=== PATIENT | female | born 1975 | race Hispanic/Latino ===

== ENCOUNTER 2017-09-12 06:31 | Emergency (ER) | payer OTHER ==
[~2017-09-12] VITALS: Ht 167.6 cm; Wt 83.5 kg
[~2017-09-12 06:31] MED LIST: PERCOCET 325 MG1 TA2 PO; ZOFRAN4 M1 SL
[2017-09-12 07:26] LABS: ABSOLUTE BASOPHIL COUNT 0 /CUMM (0.0-0.2); ABSOLUTE EOSINOPHIL COUNT 0.1 /CUMM (0.0-0.7); ABSOLUTE GRANULOCYTE CT 4.9 /CUMM (1.4-6.5); ABSOLUTE LYMPH COUNT 1.5 /CUMM (1.2-3.4); ABSOLUTE MONOCYTE COUNT 0.4 /CUMM (0.10-0.60); BASOPHIL % 0.7 % (0.0-2.0); EOSINOPHIL % 1.9 % (0-5); GRANULOCYTE % 70.2 % (42.2-75.2); MEAN CORPUSCULAR HGB 30.3 PG (27.0-31.0); MEAN CORPUSCULAR HGB CONC 34.6 G/DL (33.0-37.0); MEAN CORPUSCULAR VOLUME 87.5 FL (81.0-99.0); MEAN PLATELET VOLUME 7.6 FL (7.4-10.4); PLATELET COUNT 263 /CUMM (130-400); RBC DISTRIBUTION WIDTH 12.9 % (11.5-14.5)
--- NOTE | 2017-09-12 07:33 | ED GENERAL ADULT ---
History of Present Illness General Chief Complaint: Palpitations Stated Complaint: " IM HAVING PALPITATIONS X'S 1 WK" Source: patient Exam Limitations: no limitations Vital Signs & Intake/Output Vital Signs & Intake/Output Vital Signs Date Time Temp Pulse Resp B/P B/P Pulse O2 O2 Flow FiO2 Mean Ox Delivery Rate 09/12 1056 98.0 84 16 128/82 97 Room Air 09/12 0651 97.7 85 16 135/86 98 Room Air Allergies Coded Allergies: NO KNOWN ALLERGIES (01/06/12) Reconcile Medications Alprazolam 0.5 MG TABLET 1 TAB PO BIDP PRN ANXIETY (Reported) Augmentin (Augmentin 500-125 Tablet) 500 MG-125 MG TABLET 1 TAB PO BID LYME ( Reported) Cefuroxime Axetil (Cefuroxime) 500 MG TABLET 1 TAB PO BID LYME (Reported) Hydroxychlorquine (Plaquenil) 200 MG TABLET 1 TAB PO BID UNKNOWN (Reported) Pregabalin (Lyrica) 150 MG CAPSULE 1 CAP PO BID PAIN (Reported) Tramadol HCl 50 MG TABLET 1 TAB PO TIDPRN PAIN (Reported) Triage Note: 41YO FEMALE TO RM 8 VIA WHEELCHAIR W/CO CHEST PALPITATIONS ON AND OF X 1 WEEK BUT THIS AM "HAVING PRESSURE THAT RADIATES TO JAW AND L SHOULDER" UNABLE TO RATE. CM = NSR 80'S Triage Nurses Notes Reviewed? yes : No Patient currently breastfeeds: No HPI: 41-year-old female comes in complaining of palpitations. She reports that she has Lyme disease with a history of fibromyalgia, chronic pains and palpitations. This is not the first time she has had palpitations, she seen her PCP for this who put her on alprazolam. She has even seen a animal handler which she does not remember. She reports dizziness but again this is a chronic symptom for her. She is here because her symptoms seem worse than usual. She denies lightheadedness diaphoresis or shortness of breath. She denies headache. Past History Travel History Traveled to [place] past 21 day No Medical History Any Pertinent Medical History? see below for history Neurological: FIBROMYALGIA Renal: KIDNEY STONES Musculoskeletal: LYME DISEASE Surgical History Surgical History: non-contributory Psychosocial History What is your primary language Indonesian Tobacco Use: Never used Family History Hx Contributory? No Review of Systems Review of Systems Constitutional: Denies: diaphoresis, fever, malaise. EENTM: Denies: eye pain, eye drainage, eye tearing. Respiratory: Denies: cough, hemoptysis, orthopnea, short of breath. Cardiovascular: Reports: palpitations. Denies: chest pain, edema, orthopena. GI: Denies: abdominal pain, bloating, constipation, diarrhea. Genitourinary: Denies: discharge, dysuria, frequency, hematuria. Musculoskeletal: Reports: back pain, joint pain, muscle pain. Skin: Denies: cysts, change in skin color, change in hair/nails. Neurological/Psychological: Denies: anxiety, ataxia. Hematologic/Endocrine: Denies: bruising, bleeding. Physical Exam Physical Exam General Appearance: well developed/nourished, no apparent distress, alert, awake Head: atraumatic, normal appearance Eyes: Bilateral: normal appearance, PERRL, EOMI. Ears, Nose, Throat: normal ENT inspection Neck: normal inspection, supple, full range of motion Respiratory: normal breath sounds, chest non-tender, no respiratory distress Cardiovascular: regular rate/rhythm Peripheral Pulses: 4+ radial (R), 4+ radial (L), 4+ dorsalis pedis (R), 4+ dorsalis pedis (L) Gastrointestinal: normal bowel sounds, soft, non-tender, no organomegaly Back: normal inspection, normal range of motion Extremities: normal inspection, normal capillary refill, normal range of motion Neurologic/Psych: no motor/sensory deficits, awake, alert, oriented x 3 Skin: intact, normal color, warm/dry Core Measures ACS in differential dx? No CVA/TIA Diagnosis: No Sepsis Present: No Sepsis Focused Exam Completed? No Progress Differential Diagnoses . Plan of Care: Orders Procedure Date/time Status TROPONIN LEVEL 09/12 1015 Complete EKG 09/12 1015 Active Telemetry/Obstetrics Nurse 09/12 0722 Active TSH REFLEX 09/12 0645 Complete TROPONIN LEVEL 09/12 0645 Complete MAGNESIUM 09/12 0645 Complete COMPREHENSIVE METABOLIC PANEL 09/12 0645 Complete CBC WITHOUT DIFFERENTIAL 09/12 0645 Complete EKG 09/12 0635 Active Laboratory Tests 09/12/17 1020: Troponin I < 0.01 09/12/17 0714: Anion Gap 11, Estimated GFR > 60, BUN/Creatinine Ratio 16.0, Glucose 100 H, Calcium 9.1, Magnesium 1.9, Total Bilirubin 0.6, AST 29, ALT 43, Alkaline Phosphatase 68, Troponin I < 0.01, Total Protein 6.6, Albumin 3.8, Globulin 2.8, Albumin/Globulin Ratio 1.4, TSH &T3 &Free T4 Intrp 2.720, CBC w Diff NO MAN DIFF REQ, RBC 4.80, MCV 87.5, MCH 30.3, MCHC 34.6, RDW 12.9, MPV 7.6, Gran % 70.2, Lymphocytes % 21.8, Monocytes % 5.4, Eosinophils % 1.9, Basophils % 0.7, Absolute Granulocytes 4.9, Absolute Lymphocytes 1.5, Absolute Monocytes 0.4, Absolute Eosinophils 0.1, Absolute Basophils 0 Initial ED EKG: normal axis, normal intervals, normal QRS complex, no ST T wave changes Prior EKG: unchanged (01/05/2012) Repeat EKG: unchanged Comments: 41-year-old female presents with palpitations, body aches. She specifically denies chest pain, shortness of breath, exertional pain, diaphoresis to me. I reviewed the triage notes were there is mention of chest pain. I spoke to the patient about pains and discomfort, she says that she has chronic body pains from her Lyme disease which has been an ongoing issue for her. These symptoms are not new for her knee there is a palpitation. We will evaluate the patient thoroughly. She does not have a history of Lyme carditis. She has history of Lyme disease causing chronic pain. 1038 repeat EKG shows sinus at a rate of 83. No significant change. 1141 the patient is comfortable, without chest pain. Without any significant change. She is PERC negative, has no shortness of breath. Presentation consistent PE No known coronary artery disease history. Low risk for heart score. No active chest pain, history of palpitations without any EKG changes or abnormal telemetry findings. Plan: Outpatient cardiology follow-up. Patient has a follow-up with PCP tomorrow which she will keep. Departure Departure Disposition: HOME OR SELF CARE Condition: Stable Clinical Impression Primary Impression: Palpitations Referrals: Eric Araujo MD (PCP/Family) Callum Cho MD Additional Instructions: Return for any new or concerning symptoms. Return for dizziness or lightheadedness or new pain. Departure Forms: Customer Survey General Discharge Information Critical Care Note Critical Care Note Critical Care Time: non-applicable
[2017-09-12] MEDS ORDERED: LYRICA150 M1 PO (08:32)
[2017-09-12] MEDS ORDERED: TRAMADOL HCL50 M1 PO (08:33)
[2017-09-12] MEDS ORDERED: ALPRAZOLAM0.5 M4 PO (08:33)
[2017-09-12] MEDS ORDERED: CEFUROXIME500 MG PO (08:34)
[2017-09-12] MEDS ORDERED: PLAQUENIL200 M1 PO (08:34)
[2017-09-12] MEDS ORDERED: AUGMENTIN 500-1 EACH PO (08:35)
[2017-09-12 10:56] VITALS: BP 128/82
== END 2017-09-12 11:57 ==
LOC: ERH 06:31
PROVIDERS: Emergency Medicine
DX: R00.2 Palpitations (principal)
CPT/HCPCS: 93005; 93010